=== PATIENT | female | born 1990 | race Caucasian/White ===

== ENCOUNTER 2023-06-21 01:36 | Emergency (ER) | payer OTHER, SELFPAY ==
[2023-06-21 01:42] VITALS: BP 133/70; PULSE 85; RESP 20; TEMP 36.7; O2SAT 99; BMI 19.1
--- NOTE | 2023-06-21 02:04 | ED_ITS ---
HPI - General Adult General Date Seen: 06/21/23 Chief complaint: Chemical Exposure Stated complaint: Toilet bowl shallot cleaner splashed in her eye - L Time Seen by Provider: 06/21/23 01:41 Source: patient Mode of arrival: ambulatory Limitations: no limitations History of Present Illness HPI narrative: Patient is a 32-year-old, generally healthy woman, who presents for evaluation after getting toilet bowl shallot cleaner with 12% hydrochloric acid into her left eye. She says immediately after it splashed into her eye it started to burn and so she flushed it for about 15 minutes. Since then she has noted that her eyes red and her eyelid is swollen. She does not have significant eye pain although it feels a little irritated like she has an eyelash in the eye. She does not were contact lenses, she is not sure if the vision is different in 1 eye versus the other, but has never needed corrective eyewear. Right now the left eye seems a little blurry. She denies photophobia. Related Data Home Medications Medication Instructions Recorded Confirmed No Known Home Medications 06/21/23 06/21/23 Allergies Allergy/AdvReac Type Severity Reaction Status Date / Time No Known Drug Allergies Allergy Verified 06/21/23 01:44 [facility] Medical History (Updated 06/21/23 @ 02:04 by Nataly Patel MD) No significant past medical history Surgical History (Updated 06/21/23 @ 01:47 by Carlos tSrong RN) No significant past surgical history Social History Smoking Status: Never smoker Second hand tobacco smoke exposure: No How often do you have a drink containing alcohol: never AUDIT-C Alcohol total score: 0 Non-prescribed substance use: denies use Exam Narrative: Exam Narrative: Vital signs reviewed Visual acuity: 20/25 on the right, 20/40 on the left. In general, alert, well-appearing young woman. Eyes: On the left, the conjunctiva is injected, lid is mildly edematous. Pupils are equal and reactive bilaterally. Extraocular movements are full. No evidence of foreign body. Periorbital skin is otherwise normal. Const: Vital Signs, click to edit/add: Vital Signs - 24 hr 06/21/23 01:42 Temperature 98.0 F Pulse Rate [Right Pulse Oximeter] 85 Respiratory Rate 20 Blood Pressure [Ri ght Upper Arm] 133/70 Pulse Oximetry 99 Oxygen Delivery Me thod Room Air Documenting provider has reviewed patient's vital signs: yes Course Course ED Course: Tetracaine eye drops were placed in the left eye. PH is noted to be 7. With fluorescein and a Wood's lamp, I do not see evidence of significant corneal abrasion or ulceration. Her vision is slightly decreased on the left, discussed that this may be simply secondary to irritation of the surface of her eye, but I am going to cover her with antibiotic drops and would like her to see an eye clinic tomorrow for re-evaluation to make sure she is healing well. Return any time for significant worsening such as severe eye pain, photophobia, significant visual changes. Tobramycin drops prescribed from [facility]. Vital Signs Vital signs: Initial Vital Signs Respiratory Effort Normal, Spontaneous, Non-Labored 06/21/23 01:41 Respiratory Depth Normal 06/21/23 01:41 Respiratory Pattern Normal 06/21/23 01:41 Vital Signs Temperature 98.0 F 06/21/23 01:42 Pulse Rate 85 06/21/23 01:42 Respiratory Rate 20 06/21/23 01:42 Blood Pressure 133/70 06/21/23 01:42 Pulse Oximetry 99 06/21/23 01:42 Oxygen Delivery Method Room Air 06/21/23 01:42 Temperature 98.0 F 06/21/23 01:42 Pulse Rate 85 06/21/23 01:42 Respiratory Rate 20 06/21/23 01:42 Blood Pressure 133/70 06/21/23 01:42 Pulse Oximetry 99 06/21/23 01:42 Oxygen Delivery Method Room Air 06/21/23 01:42 Discharge Plan Discharge Clinical Impression: Chemical burn of left eye Patient Disposition: Home, Self-Care Condition: Improved Instructions: Chemical Eye Ly (ED) Additional Instructions: Your vision is slightly decreased in the left eye, this may be simply due to some swelling/irritation of the cornea, but I would recommend that you be seen on Thursday by an eye clinic just to document improvement. I have also prescribed an antibiotic eyedrop to use for the next few days. For worsening such as severe eye pain, significant light sensitivity, significant vision changes return to the ER at any time. Prescriptions: No Action No Known Home Medications Stand Alone Forms: [employer] Info Instructions
[2023-06-21] MEDS: TETRACAINE 0.5% OPHTH 2 DROP EYE-LEFT (02:30)
[2023-06-21] MEDS: FLUORESCEIN SODIUM TOPICAL STRIP 1 STRIP EYE-LEFT (02:30)
[2023-06-21 03:15] VITALS: BP 133/70; PULSE 85; RESP 20; TEMP 36.7
== END 2023-06-21 02:30 | disposition home or self-care (01) ==
LOC: ED 02:15
PROVIDERS: Emergency Provider Emergency Medicine
DX: T55.1X1A Toxic effect of detergents, accidental (unintentional), initial encounter (principal); T26.92XA Corrosion of left eye and adnexa, part unspecified, initial encounter
CPT/HCPCS: 65222; 99283; 99284; A9270